=== PATIENT | female | born 1995 | race Caucasian/White ===

== ENCOUNTER → 2018-05-29 | Outpatient (REF) | payer OTHER | LOC: M LAB REF 17:20 | DX: Z34.83 Encounter for supervision of other normal pregnancy, third trimester (principal) ==

== ENCOUNTER → 2018-05-29 | Outpatient (CLI) | payer OTHER ==
[2018-05-29 21:05] LABS: CHLAMYDIA DNA AMPLIFICATION NEGATIVE (NEGATIVE); GC DNA AMPLIFICATION NEGATIVE (NEGATIVE)
[2018-05-31 09:51] LABS: HEPATITIS B SURFACE ANTIGEN NEGATIVE (NEGATIVE)
[2018-05-31 09:51] LABS: HEPATITIS C VIRUS ABY INDEX 0.1 INDEX (<0.8)
== END ==
LOC: M SMT 13:43
DX: Z36.89 Encounter for other specified antenatal screening (principal)
CPT/HCPCS: 87340

== ENCOUNTER 2018-06-04 10:00 | Inpatient (IN) | payer OTHER ==
[2018-06-04] MEDS ORDERED: LR 1,000 ML IV (10:09)
[2018-06-04] MEDS: LACTATED RINGER'S 1000 ML IV (10:24)
[2018-06-04 10:30] LABS: HEMATOCRIT 39.1 % (36.0-47.0); HEMOGLOBIN 13.3 g/dl (12.0-15.5); MEAN CORPUSCULAR HEMOGLOBIN 29.1 pg (27.0-33.0); MEAN CORPUSCULAR VOLUME 85.6 fl (80.0-96.0); PLATELET COUNT, AUTOMATED 294 10^3/uL (150-450); RED BLOOD COUNT 4.57 10^6/uL (4.00-5.40); WHITE BLOOD COUNT 12.4 10^3/uL (4.0-10.0)
[2018-06-04] MEDS ORDERED: FENTANYL 2MCG/ML ROPIVACAINE 0.2% IN 0.9% NACL 100ML IVBAG As Ordered (10:39)
[2018-06-04] MEDS: FENTANYL/ROPIVACAINE/NACL BAG 100 ML EPIDURAL (11:11)
[2018-06-04] MEDS ORDERED: EPIDURAL COMMENT XX (11:12)
[2018-06-04] MEDS ORDERED: REFRIGERATOR IV KEYS XX (11:12)
[2018-06-04] MEDS ORDERED: NALOXONE INJ 0.4 MG/1 ML VIAL (J2310) IV (11:12)
[2018-06-04] MEDS ORDERED: diphenhydrAMINE INJ 50MG/ML VIAL (J1200) IV (11:12)
[2018-06-04] MEDS ORDERED: ONDANSETRON 4MG/2ML VIAL (J2405) IV ×2 (11:12→11:45)
[2018-06-04] MEDS ORDERED: EPIDURAL/PCA KEYS XX (11:12)
[2018-06-04] MEDS ORDERED: ePHEDrine SULFATE 25 MG/5 ML(5MG/ML) SYRINGE IV (11:12)
[2018-06-04] MEDS ORDERED: OXYTOCIN 30 UNITS IN 0.9% NaCl 500ML IV BAG (J2590) As Ordered (11:31)
[2018-06-04] MEDS ORDERED: DIBUCAINE 1% OINTMENT 30GM TOP (11:45)
[2018-06-04] MEDS ORDERED: RHOGAM 300 MCG (1500 IU) INJ (J2790) IM (11:45)
[2018-06-04] MEDS ORDERED: METHYLERGONOVINE MALEATE 0.2 MG TAB PO (11:45)
[2018-06-04] MEDS ORDERED: MEASLES,MUMPS,RUBELLA VACCINE INJ (MMR-II) (90707) SC (11:45)
[2018-06-04] MEDS: IBUPROFEN 800 MG TAB PO ×2 (12:20→23:10)
[2018-06-04] MEDS: OXYTOCIN DRIP 30 UNITS in APPROPRIATE DILUENT 1 EA IV (13:46)
[2018-06-04] MEDS: ACETAMINOPHEN 500 MG TAB PO (17:47)
[2018-06-05] MEDS: ACETAMINOPHEN 500 MG TAB PO ×3 (02:56→22:43)
[2018-06-05] MEDS: IBUPROFEN 800 MG TAB PO ×2 (07:36→16:57)
[2018-06-05] MEDS: PRENATAL VITAMINS CHEWABLE TABLET PO (07:36)
[2018-06-05] MEDS: DOCUSATE SODIUM 100 MG CAP PO (14:13)
[2018-06-06] MEDS: IBUPROFEN 800 MG TAB PO (07:54)
[2018-06-06] MEDS: PRENATAL VITAMINS CHEWABLE TABLET PO (07:54)
[2018-06-06] MEDS: ACETAMINOPHEN 500 MG TAB PO (13:35)
== END 2018-06-06 14:15 | disposition home or self-care (01) | DRG 560 ==
LOC: M LDO 10:00 → M OBS 06-06 11:16 → M LDI 10:08 → M OBS 14:09
PROVIDERS: Specialist
PROC: 10E0XZZ Delivery of Products of Conception, External Approach (ICD-10-PCS; principal; 2018-06-04)
DX: O80 Encounter for full-term uncomplicated delivery (principal); Z3A.38 38 weeks gestation of pregnancy; Z37.0 Single live birth

== ENCOUNTER → 2019-04-03 | Outpatient (CLI) | payer OTHER ==
[~2019-04-03] MED LIST: COLA100C5 PO; IBUP-1114 PO; MAPA500T2 PO; PRENTAB9 PO
[2019-04-03 15:54] LABS: BASO % 0.5 % (0.0-1.0); EOS # 0.3 10^3/uL (0.0-0.5); EOS % 3.6 % (0.0-3.0); HEMATOCRIT 39.5 % (36.0-47.0); HEMOGLOBIN 13.4 g/dl (12.0-15.5); LYMPH # 2.3 10^3/uL (1.5-5.0); MEAN CORPUSCULAR HEMOGLOBIN 30.7 pg (27.0-33.0); MEAN CORPUSCULAR HGB CONC 33.9 g/dl (32.0-36.5); MEAN CORPUSCULAR VOLUME 90.4 fl (80.0-96.0); MONO # 0.7 10^3/uL (0.0-0.8); MONO % 7.5 % (0.0-5.0); NEUTROPHILS # 5.5 10^3/uL (1.5-8.5); NEUTROPHILS % 62.1 % (36.0-66.0); PLATELET COUNT, AUTOMATED 330 10^3/uL (150-450); RED BLOOD COUNT 4.37 10^6/uL (4.00-5.40); WHITE BLOOD COUNT 8.8 10^3/uL (4.0-10.0)
[2019-04-03 16:57] LABS: CHLAMYDIA DNA AMPLIFICATION NEGATIVE (NEGATIVE); GC DNA AMPLIFICATION NEGATIVE (NEGATIVE)
[2019-04-04 10:47] LABS: HEPATITIS C VIRUS ABY INDEX 0.2 INDEX (<0.8); HIV 1&2 SCREEN CENTAUR NEGATIVE (NEGATIVE); RUBELLA IgG QUALITATIVE IMMUNE (IMMUNE)
== END ==
LOC: M SMT 10:45
PROVIDERS: ATTEND Advanced Practice Midwife
DX: Z34.81 Encounter for supervision of other normal pregnancy, first trimester (principal); Z13.79 Encounter for other screening for genetic and chromosomal anomalies

== ENCOUNTER → 2019-05-09 | Outpatient (CLI) | payer OTHER ==
--- NOTE | 2019-05-09 11:48 | REP ---
OB ULTRASOUND: Real-time sonographic evaluation of the gravid uterus is performed. There is a single living intrauterine gestation. Estimated gestational age 19 weeks 0 days, EDC 10/03/2019. Today's measurements indicate appropriate growth. BPD 41 mm = 18 weeks 4 days, 38th percentile HC 161 mm = 18 weeks 6 days, 47th percentile AC 145 mm = 19 weeks 6 days, 68th percentile Femur length 28 mm = 18 weeks 3 days, 35th percentile HC/AC ratio 1.11 within normal range. Estimated weight 274 grams, 51st percentile. Cervix is closed and measures 4.4 cm in length. heart rate 156 beats per minute. SEEN/GROSSLY UNREMARKABLE Lateral ventricles Yes Posterior fossa Yes Upper lip Yes Four-chamber heart Yes LVOT Yes RVOT Yes Stomach Yes Cord insertion Yes Three vessel cord Yes Kidneys Yes Bladder Yes Spine Yes position: Vertex. Placenta: Anterior and grade 1 with no previa or abruption. Amniotic fluid: Within normal limits. Electronically Signed by Solomon Orozco MD 05/10/2019 11:18 A
== END ==
LOC: M RAD 10:36
PROVIDERS: ATTEND Advanced Practice Midwife
DX: Z34.82 Encounter for supervision of other normal pregnancy, second trimester (principal)